=== PATIENT | female | born 1945 | race Caucasian/White ===

== ENCOUNTER 2018-01-08 15:42 | Observation (INO) | END 2018-01-09 19:05 | disposition home or self-care (01) ==

== ENCOUNTER 2018-02-03 06:10 | Emergency (ER) | END 2018-02-03 11:45 | disposition home or self-care (01) ==

== ENCOUNTER 2018-02-21 10:48 | Emergency (ER) | END 2018-02-21 14:22 | disposition home or self-care (01) ==

== ENCOUNTER 2018-02-24 11:28 | Emergency (ER) | END 2018-02-24 13:20 | disposition home or self-care (01) ==